=== PATIENT | male | born 1950 | race Caucasian/White ===

== ENCOUNTER 2018-11-22 07:28 | Outpatient (CLI) | payer MEDICARE ==
--- NOTE | 2018-11-22 10:53 | MRI ---
RIGHT KNEE MRI WITHOUT IV CONTRAST: HISTORY: Other spontaneous disruption of the PCL, right knee pain, anterior soft tissue swelling. FINDINGS: Prominent anterior superficial subcutaneous swelling and edematous changes of the knee with a more fo amada 1.1 x 5.3 x 5.1 cm diameter complicated fluid collection overlying the mid and inferior patellar tendon and anterior proximal tibia metaphysis. This certainly could represent a posttraumatic seroma or hematoma. Another consideration would be that of a distended abnormal infrapatellar interstitial bursa representing bursitis. No significant joint effusion. There is marked enlargement of the ACL with extensive intraligamentous fluid and edematous changes, evidence for an ACL ganglion cyst or ex tensive mucoid degeneration, but no evidence for an acute ACL tear. The PCL appears intact. The lat eral meniscus is unremarkable. The medial meniscus demonstrates minimal intrasubstance degenerative signal with some focal areas of free edge blunting including the posterior root, body, and anterior h orn regions related to small degenerative-type tears or considerable fraying. Medial and lateral col lateral ligament complexes and quadriceps and patellar tendons and extensor mechanism are intact. Se veral small posterior ganglion cysts are noted somewhat posterior and superior to the posterior root region of the medial meniscus. No abnormal marrow signal. No acute osteochondral defect. IMPRESSION: Large superficial subcutaneous complicated-appearing fluid collection with some surrounding fat stran ding. Possibilities include that of posttraumatic seroma/hematoma versus a superficial infrapatellar abnormal bursal collection, evidence for superficial interstitial bursitis. Blunting of the free ed ge of the medial meniscus, evidence for small degenerative-type tears versus multifocal fraying. Marianna dence for anterior cruciate ligament mucoid degeneration versus intraligamentous ganglion cyst. Othe r findings as above. POS: [facility]
== END 2018-11-22 07:29 | disposition home or self-care (01) ==
LOC: BICMRI 07:28
PROVIDERS: ATTEND Specialist
DX: M23.621 Other spontaneous disruption of posterior cruciate ligament of right knee (principal); M67.461 Ganglion, right knee; R93.7 Abnormal findings on diagnostic imaging of other parts of musculoskeletal system